=== PATIENT | female | born 1990 | race Hispanic/Latino ===

== ENCOUNTER 2018-11-13 00:20 | Emergency (ER) | payer SELFPAY ==
--- NOTE | 2018-11-13 01:34 | OBHP ---
Datetime: 11/13/2018 01:24 IP Admit Plan: Observation/Evaluation Admit Comment, IP Provider: 28-year-old G1, P0 at 17 weeks 5 days gestational age presents to OB ED complaining of back pain and diffuse lower abdominal discomfort. Patient denies any nausea or vomiti ng, diarrhea or constipation, vaginal bleeding, leakage of fluids, vaginal discharge, fever or chills , dysuria. Otherwise, patient without complaints. Patient reports no ultrasound done during this pr egnancy as of yet. Past medical history denies Past surgical history denies Medications vitamins No known drug allergies Obstetrical history G1, P0 Social history denies tobacco, drugs, alcohol Physical exam: Refer to physical exam findings Assessment: G1, P0 at 17 weeks gestational age with back pain and abdominal discomfort Plan: Check labs: Urinalysis, CBC, CMP, LFTs, amylase, lipase. Obstetrical ultrasound with cervical length measurement Continue observation Discussed plan with patient and all patient questions answered. Extremities - PN: Normal Abdomen - PN: Normal Back - PN: Normal HEENT - PN: Normal General - PN: Normal FHR - Baseline A Provider: 150s via doppler Membranes, Provider: Intact Contraction Comments Provider: none Comments, ACOG Physical Exam: Abdomen soft, nontender, nondistended. No rebound, no guarding. No f undal tenderness. Sterile speculum exam: Cervix long, closed, posterior. No blood, fluid, discharge. IP Hx Assessment: No Care EGA AdmitDate IP: 17.5 Vital Signs Provider: Reviewed; Within Normal Limits IP Chief Complaint: Maternal discomfort Dilatation, Provider: 0 Effacement, Provider: 0 Station, Provider: -4 Genitourinary Exam: Normal
[2018-11-13 02:06] LABS: BASO % 0.2 % (0.0-2.0); EOS # 0.2 K/uL (0.0-0.7); EOS % 1.6 % (0.0-4.0); HEMOGLOBIN 10.6 g/dL (12.0-16.0); LYMPH # 2.2 K/uL (1.0-4.3); LYMPH % 21.2 % (20.0-40.0); MEAN CELL VOLUME 76.6 fl (81.0-99.0); MEAN CORPUSCULAR HEMOGLOBIN 25.1 pg (27.0-31.0); MEAN CORPUSCULAR HGB CONC 32.8 g/dL (33.0-37.0); MEAN PLATELET VOLUME 7.5 fl (7.2-11.7); MONO # 0.9 K/uL (0.0-0.8); MONO % 8.6 % (0.0-10.0); NEUT # 7.3 K/uL (1.8-7.0); NEUT % 68.4 % (50.0-75.0); RBC 4.22 Mil/uL (3.80-5.20); RED CELL DISTRIBUTION WIDTH 14.9 % (11.5-14.5); WHITE BLOOD COUNT 10.6 K/uL (4.8-10.8)
[2018-11-13 02:09] LABS: SQUAMOUS EPITHIAL < 1 /hpf (0-5); URINE BILIRUBIN NEGATIVE (NEGATIVE); URINE BLOOD NEGATIVE (NEGATIVE); URINE CLARITY CLEAR (Clear); URINE COLOR STRAW (YELLOW); URINE GLUCOSE (UA) NEG (NEGATIVE); URINE LEUKOCYTE ESTERASE NEG Leu/uL (Negative); URINE PROTEIN NEGATIVE (NEGATIVE); URINE UROBILINOGEN 0.2-1.0 mg/dL (0.2-1.0)
[2018-11-13 02:17] LABS: ALB/GLOB RATIO 1.1 (1.0-2.1); ALT/SGPT 64 U/L (9-52); AMYLASE 100 U/L (30-110); AST/SGOT 49 U/L (14-36); BILIRUBIN,DIRECT 0.2 mg/ml (0.0-0.4); BLOOD UREA NITROGEN 11 mg/dl (7-17); CALCIUM 9.5 mg/dL (8.4-10.2); GFR NON-AFRICAN AMERICAN > 60; LIPASE 98 U/L (23-300)
[2018-11-13 06:34] VITALS: BMI 26.5
--- NOTE | 2018-11-13 12:20 | US ---
Date of service: 11/13/2018 PROCEDURE: OB Pelvic Ultrasound HISTORY: Abdominal pain LMP: 07/12/2018 COMPARISON: None available. FINDINGS: UTERUS: There is a single living intrauterine gestation in breech presentation. Placenta is posterior and fundal in location free of the cervical os.. BPD: 4.9 cm = 20 weeks 5 days HC: 17.3 cm = 19 weeks 6 days AC: 15.7 cm = 20 weeks 6 days FL: 3.6 cm = 21 weeks 3 days Average ultrasound age = 20 weeks 5 days +/-1 week 3 day Heart motion documented heart rate = 165 BPM motion documented Dedicated anatomy survey not performed at this time. CERVIX: Cervix measures approximately 3.8 cm with what appears to be fluid in the endocervical canal. RIGHT OVARY: Visualized LEFT OVARY: Not visualized FREE FLUID: None. OTHER FINDINGS: None. IMPRESSION: Living intrauterine gestation at approximately 20 weeks 5 days +/-1 week 3 days. motion documented and heart rate documented at 165 BPM. Note that dedicated anatomy survey not performed at this time Placenta is posterior and fundal in location. Cervix measures approximately 3.8 cm with questionable small amount of fluid in the endocervical canal
--- NOTE | 2018-11-13 13:12 | OBPN ---
Datetime: 11/13/2018 13:07 IP Progress Note Comment: Patient comfortable at this time without complaints. Pelvic ultrasound re ports possible fluid in cervix. Cervical length measurement 3.8 cm. Discussed finding with radiolog ist. As per phone conversation, no fluid in cervix. Plan to repeat ultrasound to confirm normal cer vical length with normal findings. I discussed plan with patient and all patient questions answered. Datetime: 11/13/2018 01:24 Membranes, Provider: Intact Contraction Comments Provider: none FHR - Baseline A Provider: 150s via doppler Vital Signs Provider: Reviewed; Within Normal Limits Dilatation, Provider: 0 Effacement, Provider: 0 Station, Provider: -4
--- NOTE | 2018-11-13 16:03 | US ---
Date of service: 11/13/2018 HISTORY: Cervical length COMPARISON: Correlation made with earlier study same day TECHNIQUE: Transvaginal sonographic evaluation of the performed to assess cervical length. FINDINGS: CERVIX: Cervix is closed measuring 3.6 cm. IMPRESSION: Limited study demonstrating the cervix to be closed measuring 3.6 cm.
[2018-11-13 22:57] VITALS: BP 101/63; PULSE 71; RESP 18; TEMP 97.9; O2SAT 100
== END 2018-11-13 15:55 | disposition home or self-care (01) ==
LOC: H.EROB2 00:20
DX: O26.92 Pregnancy related conditions, unspecified, second trimester (principal); R10.2 Pelvic and perineal pain; M54.9 Dorsalgia, unspecified; Z3A.17 17 weeks gestation of pregnancy

== ENCOUNTER 2018-11-30 17:47 | Emergency (ER) | payer SELFPAY ==
[2018-11-30 18:25] VITALS: BMI 24.6
[2018-11-30 23:23] VITALS: BP 107/78; PULSE 98
== END 2018-11-30 19:00 | disposition home or self-care (01) ==
LOC: H.EROB2 17:47
DX: O26.92 Pregnancy related conditions, unspecified, second trimester (principal); R10.2 Pelvic and perineal pain; Z3A.20 20 weeks gestation of pregnancy